=== PATIENT | male | born 1955 | race Caucasian/White ===

== ENCOUNTER 2022-02-16 11:34 | Outpatient (CLI) | payer MEDICARE, OTHER, SELFPAY | END 2022-02-16 11:35 | disposition home or self-care (01) | LOC: OP CLINIC 11:37 | PROVIDERS: PCP Family Medicine; Visit Provider Surgery | DX: Z12.11 Encounter for screening for malignant neoplasm of colon (principal); K57.30 Diverticulosis of large intestine without perforation or abscess without bleeding; Z86.010 Personal history of colon polyps | CPT/HCPCS: 45378; J2250; J3010 ==

== ENCOUNTER 2023-11-27 07:48 | Emergency (ER) | payer MEDICARE, OTHER, SELFPAY ==
[2023-11-27 07:54] VITALS: BP 164/94; PULSE 97; RESP 18; TEMP 36.2; O2SAT 96; BMI 46.6
--- NOTE | 2023-11-27 08:09 | ED_ITS ---
HPI - General Adult General Date Seen: 11/27/23 Chief complaint: Unspecified Complaint, Adult Stated complaint: paralysis in face, L side droop Time Seen by Provider: 11/27/23 08:03 History of Present Illness HPI narrative: This is a very pleasant 68-year-old gentleman accompanied to the ER this morning by his . He has a past medical history of hypertension (on lisinopril and hydrochlorothiazide), dyslipidemia (on statin), type 2 diabetes (on metformin. Blood sugars are generally well controlled ranging about 90-120 on his daily checks. He is here in the ER this morning with concern for possible stroke causing left- sided facial droop. He 1st noted symptoms of watering in his left eye and trouble moving his left side of face that actually began evening, more than 36 hours ago. Since then he has noticed significant weakness on left side of his face. He is not able to completely close his eye, he is drooling from left side of his mouth, his speech is impaired because he is having trouble moving the left side of his face. He is not having any other symptoms. No arm or leg weakness or numbness. No right-sided symptoms. No trouble swallowing. No trouble breathing. No headache. No fever. No rash. He recalls that he did bump his head about a week ago when he stood up and bumped against a 6 x 6 post. No other known injuries. He is not anticoagulated. He was seen in the [facility] yesterday. He was diagnosed at the bedside with Marshall's palsy. He was prescribed prednisone and valacyclovir. He took his 1st doses of those medications yesterday. His thinks his face might actually be slightly better today than it was yesterday. Patient feels about the same. Well in the urgent care yesterday, the discussion came up about whether not this was a stroke. They were told that the only way to know for sure is to do neuro imaging to evaluate for stroke. His has been very concerned about the possibility of stroke. She could not sleep overnight with worry, so made him come to the ER this morning. It sounds like there was some unclear communication between provider and the patient and his family yesterday. He has been using his eye patch overnight in using his I have moisturizing drops. Vision is normal in the left eye. No recent rashes. No known history of Lyme disease but he and his do [place] and have been clearing brush over the years. No known tick bites over the recent weeks. Related Data Home Medications Medication Instructions Recorded Confirmed atorvastatin 20 mg tablet mg PO 11/26/23 11/26/23 lisinopril 10 1 tab PO DAILY 11/26/23 11/26/23 mg-hydrochlorothiazide 12.5 mg tablet metformin 500 mg tablet,extended 500 mg PO 3XD 11/26/23 11/26/23 release 24 hr Previous Rx's Medication Instructions Recorded prednisone 20 mg tablet See Rx Instructions PO QDAY Rash 11/26/23 #30 tabs valacyclovir 1 gram tablet 1,000 mg PO BID 7 days #14 tabs 11/26/23 (Valtrex) Allergies Allergy/AdvReac Type Severity Reaction Status Date / Time No Known Drug Allergies Allergy Verified 11/26/23 17:26 Exam Narrative: Exam Narrative: Constitutional: Appears well-developed and well-nourished. Alert. Conversant. Non toxic. HENT: Head: Atraumatic. Nose: Nose normal. Mouth/Throat: Oral mucosa is clear and moist. no trismus. Pharynx normal. Tonsils symmetric. No tonsillar enlargement, erythema, or exudate. Eyes: Tearing from his left eye. Conjunctivae normal. EOM normal. Pupils equal, round, and reactive to light. No scleral icterus. Neck: Normal range of motion. Neck supple. No tracheal deviation present. Cardiovascular: Normal rate, regular rhythm. No gallop. No friction rub. No murmur heard. Symmetric radial artery pulses Pulmonary/Chest: Effort normal. No stridor. No respiratory distress. No wheezes. No rales. No rhonchi . No tenderness. Musculoskeletal: RUE: Normal range of motion. No tenderness. No deformity LUE: Normal range of motion. No tenderness. No deformity RLE: Normal range of motion. No edema. No tenderness. No deformity LLE: Normal range of motion. No edema. No tenderness. No deformity Neurological: Mental status normal. Attention normal. Alert and oriented x3. GCS 15. Memory normal. Speech fluent. Cognition normal. Cranial Nerves intact except for left facial nerve. Visual acuity and visual brandon are grossly intact and symmetric. Tongue protrudes in the midline. Palate elevates symmetrically. Uvula midline. Phonation normal. No trouble with swallowing. Protecting his airway. Shoulder shrug normal. Muscle of mastication are equal. Facial sensation normal in all 3 dermatomes of cranial nerve 5 bilaterally Patient has significant weakness of his left facial muscles including the forehead, cheek, chin. His left corner of his mouth is drooping. He has minimal to no activity of his muscles when he tries to smile. 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 Palate elevates symmetrically and tongue protrudes in the midline. Strength: 5/5 trapezius on the right and left 5/5 deltoid on the right and left 5/5 biceps on the right and left 5/5 triceps on the right and left 5/5 sound recordist on the right and left 5/5 thumb opposition on the right and le ft 5/5 finger abduction on the right and le ft 5/5 hip flexors (L3) on the right and le ft 5/5 quadriceps (L4) on the right and lef t 5/5 tibialis anterior on the right and l eft 5/5 EHL (L5) on the right and left 5/5 gastrocnemius (S1) on the right and left 5/5 hamstring on the right and left Sensation intact to light touch in both upper extremities (C4-T1) Sensation intact to light touch in Both lower extremities (L4-S1). Finger to nose and coordination normal. Gait normal. Skin: Skin is warm and dry. No rash noted. No pallor. Normal capillary refill. Psychiatric: Normal mood. Normal affect. Const: Vital Signs, click to edit/add: Vital Signs - 24 hr 11/27/23 07:54 Temperature 97.2 F L Pulse Rate [Pulse Oximeter] 97 Respiratory Rate 18 Blood Pressure [Le ft Upper Arm] 164/94 H Pulse Oximetry 96 Oxygen Delivery Me thod Room Air Course Vital Signs Vital signs: Initial Vital Signs Temperature 97.2 F L 11/27/23 07:54 Temperature Source Temporal Artery Scan 11/27/23 07:54 Pulse Rate 97 11/27/23 07:54 Respiratory Rate 18 11/27/23 07:54 Blood Pressure 164/94 H 11/27/23 07:54 Blood Pressure Mean 117 H 11/27/23 07:54 Blood Pressure Position Supine 11/27/23 07:54 Pulse Oximetry 96 11/27/23 07:54 Oxygen Delivery Method Room Air 11/27/23 07:54 Vital Signs Temperature 97.2 F L 11/27/23 07:54 Pulse Rate 97 11/27/23 07:54 Respiratory Rate 18 11/27/23 07:54 Blood Pressure 164/94 H 11/27/23 07:54 Pulse Oximetry 96 11/27/23 07:54 Oxygen Delivery Method Room Air 11/27/23 07:54 Temperature 97.2 F L 11/27/23 07:54 Pulse Rate 97 11/27/23 07:54 Respiratory Rate 18 11/27/23 07:54 Blood Pressure 164/94 H 11/27/23 07:54 Pulse Oximetry 96 11/27/23 07:54 Oxygen Delivery Method Room Air 11/27/23 07:54 Medical Decision Making MDM Narrative Medical decision making narrative: This patient presents for evaluation of left unilateral facial weakness. While the most likely etiology considered was Marshall's Palsy, nonetheless a broad differential was considered including CVA (especially brainstem CVA), Lyme disease manifestation, neuropathy associated with HTN, HIV, DM, Sidhu-Platt syndrome, lymphoma, sarcoidosis, brain tumor, etc. Given the patient's exam including detailed neurologic exam, history and symptoms, age and risk factors, I believe this most likely represents [place] Palsy. He was already started on prednisone in Urgent Care yesterday and I agree with that is appropriate treatment would continue it. Given severity of his Marshall palsy would also have him continue on antivirals. [place] there is potential for previous exposure to Lyme disease. It is still early spring so probably no tick bites in recent days, but potentially could have been exposed last fall. Will send off Lyme serologies and if positive would put him on a course of antibiotics such as doxycycline 100 mg b.i.d. for 21 days to treat potential Lyme induced facial nerve palsy. I discussed with the patient normal Marshall's Palsy care including eye moisture, taping eye shut at night, etc. We discussed the natural history of the disease and that not all patients make a full recovery. They will follow up with their doctor within 1-2 weeks. They can consider arranging an outpatient MRI to look for rare pathology such as tumors compressing the facial nerve. No need for emergent MRI in the ER today, because clinical evaluation is highly suggestive for a peripheral facial nerve palsy and not for a stroke. Additionally, patient could not tolerate MRI here at the hospital because he due to his shoulders and body habitus he requires an open MRI (not available here). He will also follow- up with Ophthalmology this week for eye exam. He already is doing I moisturizer s, eye patching. Precautions to follow-up with ophthalmology immediately or return to the ER if eye pain develops. Return here for progressive symptoms as this is unlikely but possible to represent early Guillain-[place] syndrome, or any other neurologic symptoms such as arm or leg weakness which would not be consistent with an isolated facial nerve palsy or if he develops a right facial nerve palsy which could be more suggestive for Lyme.. Detailed D/C instructions given. Discharge Plan Discharge Clinical Impression: Marshall palsy Patient Disposition: Home, Self-Care Condition: Stable Instructions: Marshall Palsy (ED) Additional Instructions: As we discussed, your clinical examination is highly consistent with Marshall palsy and not consistent with a stroke. At this point you do not need to have brain imaging to evaluate for stroke. 1. Please continue on your medications-prednisone and acyclovir. These can improve the likelihood of complete recovery from your Marshall palsy. Monitor blood sugars closely because prednisone can cause elevated blood sugars. If your blood sugars are going up, talked your doctor and you may have to temporarily merchandise complaint adjuster diabetes medications 2. Please follow-up with your regular doctor within the next 1-2 weeks. In rare cases Marshall palsy can be caused by tumors compressing on your facial nerve. Talk to your doctor about whether or not an outpatient MRI is necessary. 3. Some cases of Marshall palsy can be caused by Lyme disease. I have ordered blood tests to check for Lyme antibodies for you. The results are not back today. They should come back in a couple of days. Someone from the ER will call you if your Lyme tests are positive. We will not call you if they are negative. 4. It is important to keep your eye moisturized and healthy. Use the moisturizing drops and keep your eye patched and closed when possible. Avoid rubbing your eye so that you do not scratch the cornea. Please recheck with your eye doctor this week. 5. It may take several months for Marshall palsy to improve. However, we do not expect to see any other new or worsening symptoms. If you develop any other neurologic problems such as drooping on the right side of your face, any numbness or weakness in your arms or legs, headache, or any problems, come back to the ER immediately. Prescriptions: No Action metformin 500 mg tablet extended release 24 hr 500 mg PO 3XD lisinopril-hydrochlorothiazide 10-12.5 mg tablet 1 tab PO DAILY atorvastatin 20 mg tablet PO valacyclovir [Valtrex] 1 gram tablet 1,000 mg PO BID 7 Days Qty: 14 0RF prednisone 20 mg tablet See Rx Instructions PO QDAY Qty: 30 0RF Rx Instructions: Four p.o. as single dose days 1-3, 3 p.o. as single dose days 4-6, 2 p.o. as single dose days 7-9, 1 p.o. days 10-12, then discontinue Follow Up/Referrals: Jaime Amin MD [Primary Care Provider] - Stand Alone Forms: [employer] Info Instructions
[2023-11-27 09:35] LABS: Hemoglobin* 14.9 gm/dL (13.5-17.5); Immature Granulocytes Pct Auto 0.3 %; Mean Corpuscular HGB Conc 33 gm/dL (32-36); Mean Corpuscular Hemoglobin 30 pg (26-34); Mean Corpuscular Volume 90 fL (80-100); Monocytes Percent Auto 5.9 % (0.0-11.0); Neutrophils Percent Auto 83.8 % (42.0-72.0); Platelet Count* 234 K/uL (140-440); RDW Coefficient of Variation % 12.6 % (11.5-15.5); Red Blood Count 5.01 m/uL (4.30-5.90); White Blood Count* 11.74 K/uL (4.50-11.00)
[2023-11-27 09:37] LABS: Slide Review Reflex No
[2023-11-27 09:47] LABS: Chloride* 109 mmol/L (96-114); Potassium* 4.1 mmol/L (3.6-5.1); Sodium* 139 mmol/L (135-149)
[2023-11-27 09:49] LABS: Creatinine* 0.7 mg/dL (0.5-1.5); Est. Creatinine Clearance* 71.99; Estimated Glomerular Filt Rate 100 ml/min
[2023-11-27 09:50] LABS: Anion Gap 6 mEq/L (7-15); Blood Urea Nitrogen* 19 mg/dL (7-30); Calcium* 9.5 mg/dL (8.4-10.6); Carbon Dioxide* 24 mmol/L (20-32); Glucose* 201 mg/dL (60-115)
[2023-11-29 00:47] LABS: Lyme ELISA Reflex 0.13 IV (<=0.90)
== END 2023-11-27 09:28 | disposition home or self-care (01) ==
PROVIDERS: Emergency Provider Emergency Medicine; PCP Family Medicine
DX: G51.0 Bell's palsy (principal)
CPT/HCPCS: 36415; 80048; 85025; 86618; 99282; 99283